=== PATIENT | male | born 1945 | race Caucasian/White ===

== ENCOUNTER → 2018-08-06 | Outpatient (CLI) | payer MEDICARE ==
--- NOTE | 2018-08-06 22:17 | CONS ---
CONSULTATION DATE OF SERVICE: 08/05/2018 73-year-old gentleman has been re-evaluated for obstructive sleep apnea-hypopnea syndrome. HISTORY OF PRESENT ILLNESS/ SLEEP WAKE EVALUATION: Patient has history of obstructive sleep apnea for about 10 years. The last CPAP titration done in 2011. Since that time, patient is on treatment with CPAP with a pressure of 8 cm of water. He continued to use his CPAP equipment every night for the whole night. His usual sleep schedule from 10 p.m. to 7 a.m. Usually no snoring with the machine. No problem with falling asleep. No TV in bedroom. He wakes up from sleep around 2 times with 1 episode of nocturia. No significant sleepiness during the day. [place] Sleepiness Scale is 2. Presently, he has problem with his machine, humidifier does not work and some notes in the machine does not work properly. PAST MEDICAL HISTORY: Positive for coronary artery disease, status post CABG, gout, hypertension, hyperlipidemia. PAST SURGICAL HISTORY: CABG and surgery for rotator cuff problems. MEDICATIONS: Allopurinol, aspirin, atenolol, lisinopril and Pravachol. SOCIAL HISTORY: Negative for smoking. Alcohol consumption occasional. FAMILY HISTORY: Heart problem, acid reflux. REVIEW OF SYSTEMS: Basically negative. No chest pains. No shortness of breath. No swelling of the legs. No sleepiness. PHYSICAL EXAM: gentleman without distress. BP 151/72, HR 58, RR 17, height 5 feet 10 inches, weight 190.6 pounds. Body mass index 27.2, oxygen saturation at room air 97%. Temperature 98.0. Oropharynx extremely low position of soft palate. Mallampati 4. Slight restriction of nasal breathing. Neck is wide 17 inches in circumference. Neck: Supple, no JVD. Thyroid is not palpable. LUNGS Clear to percussion and to auscultation. Good air exchange. No wheezing or rhonchi. HEART S1, S2 regular. No murmurs, gallops, or rubs. ABDOMEN: Soft and nontender. Bowel sounds are present. No organomegaly appreciated. EXTREMITIES: No clubbing or cyanosis. CHEESE SUPERVISOR Awake, alert, and oriented X3. Cranial nerves 2 to 7 intact. There is no fasciculation or atrophy. noted. No focal deficits observed. IMPRESSION: 1. Obstructive sleep apnea-hypopnea syndrome for more than 10 years. The patient continued to use his CPAP equipment every night for the whole night. Low position of soft palate wide neck. No snoring with CPAP. CPAP unit does not work properly at the present time. Old machine. 2. Coronary artery disease, status post coronary artery bypass grafting. 3. Hypertension. 4. Gout. 5. Hyperlipidemia. 6. Status post rotator cuff surgery on the left side. PLAN: 1. Patient will continue to use CPAP equipment every night for the whole night. 2. Prescription to replace CPAP unit and prescription for all necessary CPAP supplies. Sleep hygiene with regular time in bed for at least 8 hours. 3. No driving if feeling sleepiness. Thank you very much for allowing me to participate in management of your patient. Sincerely, John Henning MD, PhD, FAASM Diplomat of [place] Board of Medical Specialties [place] Board of Internal Medicine Digital Media Designer of [facility] [place] MMODL / MITCHN: [id number] /
== END ==
LOC: SLEEP 14:07
PROVIDERS: ATTEND Internal Medicine
DX: G47.33 Obstructive sleep apnea (adult) (pediatric) (principal); I25.10 Atherosclerotic heart disease of native coronary artery without angina pectoris; I10 Essential (primary) hypertension; M10.9 Gout, unspecified; E78.5 Hyperlipidemia, unspecified; Z95.1 Presence of aortocoronary bypass graft; Z98.890 Other specified postprocedural states; Z99.89 Dependence on other enabling machines and devices; Z79.82 Long term (current) use of aspirin; Z79.899 Other long term (current) drug therapy
CPT/HCPCS: 99211

== ENCOUNTER → 2018-11-06 | Outpatient (CLI) | payer MEDICARE ==
--- NOTE | 2018-11-06 15:02 | SFUN ---
SLEEP CENTER FOLLOW UP NOTE DATE OF SERVICE: 11/06/2018 A 73-year-old gentleman who has been followed in the Sleep Center for treatment of obstructive sleep apnea-hypopnea syndrome. Recently patient received new CPAP unit and today is his first visit with the new unit. He likes his CPAP machine. He is able to use it every night for the whole night without significant problems related to mask fitting, pressure and humidification. [place] Sleepiness Scale today is only 2. I checked his CPAP unit. CPAP pressure is 8 cm of water. Usage is 30/30 nights more than 4 hours. Average usage 8.9 hours. Leak is 12 L/minute, which is normal range. Apnea-hypopnea index only 0.6, which is absolutely great level. MEDICATIONS: Allopurinol, aspirin, atenolol, lisinopril, Pravachol. PHYSICAL EXAM: Patient in no distress. BP 132/72, HR 60, RR 16, weight 190 pounds, temperature 98.2, oxygen saturation at room air 97%. OROPHARYNX: Extremely low soft palate, Mallampati 4. HEART: S1, S2 with some irregularities. Possible extrasystoles. ABDOMEN: Slightly obese. Neck Supple, no JVD. Thyroid is not palpable. LUNGS Clear to percussion and to auscultation. Good air exchange. No wheezing or rhonchi. EXTREMITIES No clubbing or cyanosis. TICKET SALES AGENT Awake, alert, and oriented X3. Cranial nerves 2 to 7 intact. There is no fasciculation or atrophy. noted. No focal deficits observed. IMPRESSION: 1. Obstructive sleep apnea-hypopnea syndrome. Patient demonstrated 100% compliance with treatment, benefitting from treatment. 2. Coronary artery disease, status post coronary artery bypass grafting. 3. Hypertension. 4. Gout. 5. Hyperlipidemia. 6. Status post rotator cuff surgery on the left side. PLAN: 1. Patient will continue to use CPAP equipment every night for the whole night with the same level of pressure. 2. I will maintain all necessary CPAP prescription for the mask, tube and filters. 3. Losing weight. 4. Sleep hygiene with regular time in bed for at least 8 hours. 5. Precautions related to driving. No driving if feeling sleepiness. 6. Followup visit in 1 year or earlier if patient has any problems. Thank you very much for allowing me to participate in the management of your patient. Sincerely, John Henning MD, PhD, FAASM Diplomat of [place] Board of Medical Specialties [place] Board of Internal Medicine Draughtsman of [facility] [place] MMFORD / RAVINDER: [id number] /
== END | disposition home or self-care (01) ==
LOC: SLEEP 13:36
PROVIDERS: ATTEND Internal Medicine
DX: G47.33 Obstructive sleep apnea (adult) (pediatric) (principal); I25.10 Atherosclerotic heart disease of native coronary artery without angina pectoris; I10 Essential (primary) hypertension; M10.9 Gout, unspecified; E78.5 Hyperlipidemia, unspecified; Z95.5 Presence of coronary angioplasty implant and graft; Z99.89 Dependence on other enabling machines and devices; Z98.890 Other specified postprocedural states; Z79.82 Long term (current) use of aspirin; Z79.899 Other long term (current) drug therapy

== ENCOUNTER → 2020-12-01 | Outpatient (CLI) | payer MEDICARE ==
--- NOTE | 2020-12-02 06:43 | SFUN ---
SLEEP CENTER FOLLOW UP NOTE DATE OF SERVICE: 12/01/2020 75-year-old gentleman has been evaluated in Sleep Center for obstructive sleep apnea- hypopnea syndrome. Patient continued to use his CPAP equipment every night for the whole night without significant problems. I did not see the patient since 2019. [place] Sleepiness Scale today is 5 which is totally normal. I checked his CPAP unit. CPAP pressure is 8 cm of water. Usage is 30/30 nights for more than 4 hours. Average usage 8.8 hours per night. Leak is 11 L/minute which is in the normal range. Apnea-hypopnea index from 0.2, which is perfect. MEDICATIONS: Allopurinol 300 mg once a day. Farxiga 5 mg once a day, lisinopril 20 mg once a day, Pioglitazone 15 mg once a day. Atenolol 25 mg twice a day. Pravastatin 40 mg once a day. Aspirin 81 mg once a day, COQ10 100 mg twice a day. PHYSICAL EXAMINATION: GENERAL: Patient in no distress. BP 152/82, HR 71, RR 15, height 5 feet 10 inches one quarter, weight 179.2 pounds, body mass index 25.5, temperature 99.8, oxygen saturation at room air 96%. Oropharynx extremely low position of soft palate, Mallampati 4. NECK: Supple, no JVD. Thyroid is not palpable. LUNGS: Clear to percussion and to auscultation. Good air exchange. No wheezing or rhonchi. HEART: S1, S2 regular. No murmurs, gallops, or rubs. ABDOMEN: Soft and nontender. Bowel sounds are present. No organomegaly appreciated. EXTREMITIES: No clubbing or cyanosis. DIALYSIS REGISTERED NURSE: Awake, alert, and oriented X3. Cranial nerves 2 to 7 intact. There is no fasciculation or atrophy. noted. No focal deficits observed. IMPRESSION: 1. Obstructive sleep apnea-hypopnea syndrome. Patient demonstrated 100% compliance with treatment benefitting from treatment. 2. Coronary artery disease, status post coronary artery bypass grafting. 3. Hypertension. 4. Hyperlipidemia. 5. Status post left-sided rotator cuff surgery. PLAN: 1. Patient will continue to use PAP equipment every night for the whole night. 2. Sleep hygiene with regular time in bed for at least 7-1/2 to 8 hours. 3. Precautions related to driving. No driving if feeling sleepiness. 4. I will maintain all necessary prescription for PAP supplies including mask, tube, filters. 5. Watching weight. 6. Follow-up visit in 6 months or earlier if patient has any problems. Thank you very much for allowing me to participate in management of your patient. Sincerely, John Henning MD, PhD, FAASM Diplomat of [place] Board of Medical Specialties [place] Board of Internal Medicine Research And Evaluation Manager of [facility] [place] MMODL / RAVINDER: [id number] /
== END ==
LOC: SLEEP 13:33
PROVIDERS: ATTEND Internal Medicine
DX: G47.33 Obstructive sleep apnea (adult) (pediatric) (principal); I10 Essential (primary) hypertension; E78.5 Hyperlipidemia, unspecified; I25.10 Atherosclerotic heart disease of native coronary artery without angina pectoris; Z95.1 Presence of aortocoronary bypass graft; Z98.890 Other specified postprocedural states; Z79.82 Long term (current) use of aspirin; Z79.899 Other long term (current) drug therapy

== ENCOUNTER → 2021-05-31 | Outpatient (CLI) | payer MEDICARE | LOC: SLEEP 13:14 | PROVIDERS: ATTEND Internal Medicine | DX: G47.33 Obstructive sleep apnea (adult) (pediatric) (principal) | CPT/HCPCS: 99211 ==

== ENCOUNTER → 2022-05-30 | Outpatient (CLI) | payer MEDICARE ==
--- NOTE | 2022-05-30 15:56 | P.PN ---
Subjective DATE: 05/30/2022 FOLLOW UP VISIT. Patient with obstructive sleep apnea hypopnea syndrome return to sleep center for follow-up visit. Information from previous visit have been reviewed. Patient is using PAP equipment every night for the whole night, getting PAP supplies in time. The patient does not have significant problems with the mask, PAP unit and humidification. [place] sleepiness scale is 5, which is normal. I checked information from PAP unit. PAP unit pressure 8 cm H2O. Usage is 100 % for more then 4 hours, average 9 hours per night. Leak is 14.6 l/m, which is in acceptable range. Apnea Hypopnea Index is 0.4, which is normal. MEDICATIONS:1. Allopurinol 300 mg once a day 2. Atenolol 25 mg twice a day 3. Lisinopril 20 mg once a day 4. Pravastatin 40 mg once a day 5. Pioglitazone 30 mg once a day During physical exam: GENERAL: A pleasant patient without any distress. No chest pain, no shortness of breath, no headaches. VITAL SIGNS: BP 175/91, HR 54, RR 18, weight 191.2, temperature 96.4, oxygen saturation at room air 97 % . HEENT: PERRLA, EOMI.low position of soft palate, Mallapati 4. NECK: Supple. No JVD. LUNGS: Clear to percussion and to auscultation. Good air exchange. No wheezing or rhonchi. HEART: S1, S2 regular. ABDOMEN: Soft and nontender.[] EXTREMITIES: No clubbing or cyanosis. VARNISHER PLASTICOATER: Awake, alert, and oriented x3. No focal deficit. Impressions: 1. Obstructive sleep apnea-hypopnea syndrome. Patient demonstrated great compliance with treatment, benefiting from treatment. 2. Hypertension. 3. Coronary artery disease status post CABG. 4. Hyperlipidemia. 5. Status post left-sided rotator cuff surgery. Plan: 1. Continue using PAP equipment every night for the whole night. 2. To change air filter at least 1-2 times per month. 3. PAP unit should stay lower then position of the head. 4. Advised patient to remove all remaining water from humidifier canister daily and make it dry after each usage. Refill canister with fresh distilled water before each usage. 5. Sleep hygiene with regular time in bed for at least 8 hours. 6. Precautions related to driving. No driving if feel any sleepiness. 7. I will maintain prescription for PAP supplies including mask, tube, filters. 8. Follow up visit in 6 months or earlier if patient has any problems. 9. Watching weight. 10. Low sodium diet. 11. Monitoring blood pressure Thank you very much for allowing me to participate in the management of your patient. John Henning MD, PhD, FAASM. Diplomat of [place] Board of Sleep Medicine, Sleep Medicine Board by [place] Board of Internal Medicine Personal Service Workers of [facility] [place]
== END ==
LOC: SLEEP 14:54
PROVIDERS: ATTEND Internal Medicine
DX: G47.33 Obstructive sleep apnea (adult) (pediatric) (principal); I10 Essential (primary) hypertension; Z99.89 Dependence on other enabling machines and devices; E78.5 Hyperlipidemia, unspecified; Z98.890 Other specified postprocedural states; Z95.1 Presence of aortocoronary bypass graft; Z79.899 Other long term (current) drug therapy
CPT/HCPCS: 99212

== ENCOUNTER 2022-06-27 05:54 | Day surgery (SDC) | payer MEDICARE ==
[2022-06-27] MEDS ORDERED: ALPRAZolam 0.5 MG TAB PO PRN (05:57)
[2022-06-27] MEDS ORDERED: SODIUM CHLORIDE 0.9% 1,000 ML in EMPTY BAG 1 BAG IV SCH (05:57)
[2022-06-27] MEDS ORDERED: ALPRAZolam 0.25 MG TAB PO PRN (05:57)
[2022-06-27] MEDS ORDERED: ASPIRIN 325 MG TAB PO STA (05:57)
[2022-06-27] MEDS ORDERED: NITROGLYCERIN SL TABS 0.4 MG TAB SUBLINGUAL PRN (05:57)
[2022-06-27 06:25] VITALS: RESP 18; TEMP 98.5
[2022-06-27 06:31] LABS: Basophils # (A) 0.1 k/uL (0-0.2); Basophils % (A) 1 %; Eosinophils # (A) 0.3 k/uL (0-0.7); Eosinophils % (A) 5 %; HCT 49.1 % (39.0-53.0); HGB 16.4 gm/dL (13.0-17.5); Lymphocytes # (A) 1.3 k/uL (1.0-4.8); Lymphocytes % (A) 22 %; MCH 30.7 pg (25.0-35.0); MCHC 33.5 g/dL (31.0-37.0); MCV 91.7 fL (80.0-100.0); Mean Platelet Volume 8.6; Monocytes # (A) 0.6 k/uL (0-1.0); Monocytes % (A) 10 %; Neutrophils # (A) 3.6 k/uL (1.3-7.7); Neutrophils % (A) 59 %; Platelet Count 143 k/uL (150-450); RBC 5.36 m/uL (4.30-5.90); RDW 13.5 % (11.5-15.5); WBC 6.1 k/uL (3.8-10.6)
[2022-06-27 06:37] LABS: Calcium 9.4 mg/dL (8.4-10.2)
[2022-06-27 06:39] LABS: Potassium 4.3 mmol/L (3.5-5.1)
[2022-06-27] MEDS ORDERED: fentaNYL (PF) 50 MCG/ML 2 ML AMP ONE (07:28)
[2022-06-27] MEDS ORDERED: HEPARIN SODIUM 1,000 UN/ML (10ML VL) ONE (07:28)
[2022-06-27] MEDS ORDERED: LIDOCAINE 1% INJ 10MG/ML (30 ML VIAL-PF) SQ ONE ×2 (07:36→07:37)
[2022-06-27] MEDS ORDERED: MIDAZOLAM 2 MG/2 ML VIAL IV ONE (07:37)
[2022-06-27] MEDS ORDERED: fentaNYL (PF) 50 MCG/ML 2 ML AMP IV ONE (07:37)
[2022-06-27] MEDS ORDERED: IOPAMIDOL-370 125ML BTL INJ ONE (08:08)
[2022-06-27] MEDS ORDERED: IOPAMIDOL-370 100ML BTL INJ ONE (08:08)
--- NOTE | 2022-06-27 08:28 | P.CARDCATH ---
Description of Procedure: PROCEDURES PERFORMED: Left heart catheterization, bilateral coronary angiography, COLLAZO to LAD angiography, left radial to the PDA angiography, aortogram INDICATION: Stress test, history of CAD and CABG with COLLAZO to LAD, left radial to PDA, SVG to diagonal, SVG to OM CONSENT:I have discussed the risks, benefits and alternative therapies for the above-mentioned procedure and for both sedation/analgesia as well as necessary blood product administration, if indicated, as they pertain to this patient. The patient has indicated understanding and acceptance of the risks and procedures discussed. PROCEDURE: After the risks, benefits and alternatives of the above mentioned procedure explained in detail with the patient, informed consent was obtained. Patient was taken to the catheterization lab and prepped and draped in usual fashion. 1% lidocaine was used to anesthetize the right radial artery. A 6- [place] sheath was placed in the right femoral artery using modified Seldinger technique. Left coronary angiography was performed with a 6-[place] JL 4 catheter and right coronary angiography was performed with a 6-[place] JR4 catheter in various views. The FR4 catheter was inserted into the left ventricle and pressure measurements were obtained. Left radial to PDA angiography was performed with a GFR 4. COLLAZO to LAD angiography was performed with the FFR 4. Unable to cannulate any SVG and therefore aortogram was performed in the STANTON projection with power injection which showed no patent grafts to the diagonal or OM branches. Right femoral angiography showed adequate anatomy for closure and therefore a Angio-Seal was placed with hemostasis achieved. The patient tolerated the procedure well. Patient was transported back to the post catheterization holding area in stable condition. Conscious Sedation: Patient was monitored under the direct supervision of vision of myself for conscious sedation using Versed and fentanyl for a total duration of 26 minutes HEMODYNAMICS: Ao: 137/72 LV: 131/5, LVEDP 15 SELECTIVE CORONARY ARTERIOGRAPHY: LEFT MAIN: The left main is a large caliber vessel which bifurcates into the LAD and circumflex. There is a distal left main 70% stenosis. LEFT ANTERIOR DESCENDING CORONARY ARTERY: LAD is a large caliber vessel which wraps around to the apex. There is mild proximal 20-30% LAD stenosis and a mid LAD 70-80% stenosis. There is competitive flow with the COLLAZO to LAD. LEFT CIRCUMFLEX CORONARY ARTERY: Left circumflex is a moderate caliber vessel with mild disease of the circumflex however 80% stenosis of a small caliber OM 1 branch. RIGHT CORONARY ARTERY: The right coronary artery is a large caliber vessel which gives off a PDA and PLV branch and is the dominant vessel. There is 100% proximal RCA stenosis COLLAZO to LAD: Widely patent Left radial to PDA: Widely patent with collaterals to a OM branch SVG to diagonal branch: Occluded SVG to the OM: Occluded Aortogram: No patent SVG grafts noted, no significant aneurysm. FINAL IMPRESSION: 1. [place] CAD as described above including 70% left main, mid LAD 70-80% stenosis, small caliber OM1 80% stenosis, 100% RCA stenosis 2. Patent COLLAZO to LAD, left radial to PDA. Occluded SVG to diagonal and SVG to OM 3. Normal left sided filling pressures PLAN: 1. Aggressive risk factor modification per most recent ACC/AHA guidelines. 2. Continue with medical therapy with OM1 small caliber and would additionally likely need to stent the left main. Appears to have collaterals from the PDA to circumflex territory.
[2022-06-27 11:12] VITALS: BP 155/74; PULSE 56
== END 2022-06-27 12:48 | disposition home or self-care (01) ==
LOC: CATHCVL 05:54
PROVIDERS: ATTEND Internal Medicine
DX: I25.10 Atherosclerotic heart disease of native coronary artery without angina pectoris (principal); Z95.5 Presence of coronary angioplasty implant and graft; I08.0 Rheumatic disorders of both mitral and aortic valves; I25.9 Chronic ischemic heart disease, unspecified; I10 Essential (primary) hypertension; E78.5 Hyperlipidemia, unspecified; E11.9 Type 2 diabetes mellitus without complications; Z79.83 Long term (current) use of bisphosphonates; Z79.84 Long term (current) use of oral hypoglycemic drugs; Z79.82 Long term (current) use of aspirin; Z79.810 Long term (current) use of selective estrogen receptor modulators (SERMs); Z79.899 Other long term (current) drug therapy
CPT/HCPCS: 93459; 93567; 80048; 85025; C1760; C1769 ×3; C1894; J2250; J2001; J3010; Q9967 ×2

== ENCOUNTER → 2022-12-19 | Outpatient (CLI) | payer MEDICARE ==
--- NOTE | 2022-12-19 14:50 | P.PN ---
Subjective DATE: 12/19/2022 FOLLOW UP VISIT. Patient with obstructive sleep apnea hypopnea syndrome return to sleep center for follow-up visit. Information from previous visit have been reviewed. Patient is using PAP equipment every night for the whole night, getting PAP supplies in time. The patient does not have significant problems with the mask, PAP unit and humidification. [place] sleepiness scale is 6, which is normal. I checked information from PAP unit. PAP unit pressure 8 cm H2O. Usage is 100 % for more then 4 hours, average 9 hours per night. Leak is 4.5 l/m, which is in acceptable range. Apnea Hypopnea Index is 0.4 atenolol 25 mg twice a day, which is normal. MEDICATIONS:1. Lisinopril 20 mg once a day 2. Rosuvastatin 40 mg once a day 3. Allopurinol 300 mg once a day 4. Pioglitazone 30 mg once a day During physical exam: GENERAL: A pleasant patient without any distress. VITAL SIGNS: BP 161/71, HR 69, RR 18, weight 184.8, temperature 98.3, oxygen saturation at room air 99 % . HEENT: PERRLA, EOMI.low position of soft palate, Mallapati 4 . NECK: Supple. No JVD. LUNGS: Clear to percussion and to auscultation. Good air exchange. No wheezing or rhonchi. HEART: S1, S2 regular. ABDOMEN: Soft and nontender.[] EXTREMITIES: No clubbing or cyanosis. SANDWICH AND DRINK CART OPERATOR: Awake, alert, and oriented x3. No focal deficit. Impressions: 1. Obstructive sleep apnea-hypopnea syndrome. Patient demonstrated great compliance with treatment, benefiting from treatment. 2. Hypertension. 3. Coronary artery disease, status post CABG. 4. Hyperlipidemia. 5. Status post rotator cuff surgery on the left side. Plan: 1. Continue using PAP equipment every night for the whole night. 2. To change air filter at least 1-2 times per month. 3. PAP unit should stay lower then position of the head. 4. Advised patient to remove all remaining water from humidifier canister daily and make it dry after each usage. Refill canister with fresh distilled water before each usage. 5. Sleep hygiene with regular time in bed for at least 8 hours. 6. Precautions related to driving. No driving if feel any sleepiness. 7. I will maintain prescription for PAP supplies including mask, tube, filters. 8. Follow up visit in 6 months or earlier if patient has any problems. Thank you very much for allowing me to participate in the management of your patient. John Henning MD, PhD, FAASM. Diplomat of [place] Board of Sleep Medicine, Sleep Medicine Board by [place] Board of Internal Medicine Track Laying Machine Operator of [facility] [place]
== END ==
LOC: 3 N SLEEP 13:52
PROVIDERS: ATTEND Internal Medicine
DX: G47.33 Obstructive sleep apnea (adult) (pediatric) (principal); I10 Essential (primary) hypertension; E78.5 Hyperlipidemia, unspecified; I25.810 Atherosclerosis of coronary artery bypass graft(s) without angina pectoris; Z98.890 Other specified postprocedural states; Z99.89 Dependence on other enabling machines and devices; Z79.899 Other long term (current) drug therapy; Z79.01 Long term (current) use of anticoagulants
CPT/HCPCS: 99212

== ENCOUNTER → 2023-06-19 | Outpatient (CLI) | payer MEDICARE ==
--- NOTE | 2023-06-19 13:32 | P.PN ---
Subjective DATE: 06/19/2023 FOLLOW UP VISIT. Patient with obstructive sleep apnea hypopnea syndrome return to sleep center for follow-up visit. Information from previous visit have been reviewed. Patient is using PAP equipment every night for the whole night, getting PAP supplies in time. The patient does not have significant problems with the mask, PAP unit and humidification. [place] sleepiness scale is 6, which is normal. I checked information from PAP unit. PAP unit pressure 9 cm H2O. Usage is 100 % for more then 4 hours, average 9 hours per night. Leak is 5.6 l/m, which is in acceptable range. Apnea Hypopnea Index is 0.5, which is normal. MEDICATIONS:1. Allopurinol 300 mg once a day 2. Atenolol 25 mg twice a day 3. Aspirin 81 mg once a day 4. Lisinopril 20 mg once a day 5. Januvia 25 mg once a day 6. Farxiga 10 mg once a day During physical exam: GENERAL: A pleasant patient without any distress. VITAL SIGNS: BP 146/82, HR 78, RR 16, weight 184, temperature 98.0, oxygen saturation at room air 98 % . HEENT: PERRLA, EOMI.low position of soft palate, Mallapati 4 . NECK: Supple. No JVD. LUNGS: Clear to percussion and to auscultation. Good air exchange. No wheezing or rhonchi. HEART: S1, S2 regular. ABDOMEN: Soft and nontender.[] EXTREMITIES: No clubbing or cyanosis. BRUSH CLEANER: Awake, alert, and oriented x3. No focal deficit. Impressions: 1. Obstructive sleep apnea-hypopnea syndrome. Patient demonstrated great compliance with treatment, benefiting from treatment. 2. Hypertension. 3. Coronary artery disease status post CABG. 4. Diabetes mellitus. 5. Hyperlipidemia. 6. Status post left rotator cuff surgery. Plan: 1. Continue using PAP equipment every night for the whole night. 2. To change air filter at least 1-2 times per month. 3. PAP unit should stay lower then position of the head. 4. Advised patient to remove all remaining water from humidifier canister daily and make it dry after each usage. Refill canister with fresh distilled water before each usage. 5. Sleep hygiene with regular time in bed for at least 8 hours. 6. Precautions related to driving. No driving if feel any sleepiness. 7. I will maintain prescription for PAP supplies including mask, tube, filters. 8. Follow up visit in 6 months or earlier if patient has any problems. 9. Watching weight. Thank you very much for allowing me to participate in the management of your patient. John Henning MD, PhD, FAASM. Diplomat of [place] Board of Sleep Medicine, Sleep Medicine Board by [place] Board of Internal Medicine Sports Umpire of [facility] [place]
== END ==
LOC: 3 N SLEEP 13:03
PROVIDERS: ATTEND Internal Medicine
DX: G47.33 Obstructive sleep apnea (adult) (pediatric) (principal); I10 Essential (primary) hypertension; E11.9 Type 2 diabetes mellitus without complications; E78.5 Hyperlipidemia, unspecified; I25.10 Atherosclerotic heart disease of native coronary artery without angina pectoris; Z79.84 Long term (current) use of oral hypoglycemic drugs; Z79.899 Other long term (current) drug therapy; Z95.1 Presence of aortocoronary bypass graft; Z99.89 Dependence on other enabling machines and devices; Z79.82 Long term (current) use of aspirin; Z98.890 Other specified postprocedural states
CPT/HCPCS: 99212

== ENCOUNTER → 2024-02-12 | Outpatient (CLI) | payer MEDICARE ==
[2024-02-12 11:19] VITALS: BP 135/67; PULSE 60; RESP 16; TEMP 98
--- NOTE | 2024-02-12 11:39 | P.PROGSL ---
Subjective DATE: 02/12/2024 FOLLOW UP VISIT. Patient with obstructive sleep apnea hypopnea syndrome return to sleep center for follow-up visit. Information from previous visit have been reviewed. Patient is using PAP equipment every night for the whole night, getting PAP supplies in time. The patient does not have significant problems with the mask, PAP unit and humidification. [place] sleepiness scale is 5, which is normal. I checked information from PAP unit. PAP unit pressure 8 cm H2O. Usage is 100% for more then 4 hours, average 9.3 hours per night. Leak is 2 l/m, which is in acceptable range. Apnea Hypopnea Index is 0.6, which is perfect. MEDICATIONS have been reviewed, please see below. During physical exam: GENERAL: A pleasant patient without any distress. VITAL SIGNS: Please see below, weight is 192.6 lbs. HEENT: PERRLA, EOMI.low position of soft palate, Mallapati 4 . NECK: Supple. No JVD. LUNGS: Clear to percussion and to auscultation. Good air exchange. No wheezing or rhonchi. HEART: S1, S2 regular. ABDOMEN: Soft and nontender. EXTREMITIES: No clubbing or cyanosis. SAND TECHNICIAN: Awake, alert, and oriented x3. No focal deficit. Impressions: 1. Obstructive sleep apnea-hypopnea syndrome. Patient demonstrated great compliance with treatment, benefiting from treatment. 2. Hypertension. 3. Coronary artery disease, status post CABG. 4. Diabetes mellitus. 5. Hyperlipidemia. 6. Status post left rotator cuff surgery. Plan: 1. Continue using PAP equipment every night for the whole night. 2. Sleep hygiene with regular time in bed for at least 7.5-8 hours 3. PAP unit should stay lower then position of the head. 4. Advised patient to remove all remaining water from humidifier canister daily and make it dry after each usage. Refill canister with fresh distilled water before each usage. 5. Watching weight. 6. Precautions related to driving. No driving if feel any sleepiness. 7. I will maintain prescription for PAP supplies including mask, tube, filters. 8. Follow up visit in 6 months or earlier if patient has any problems. Thank you very much for allowing me to participate in the management of your patient. John Henning MD, PhD, FAASM. Diplomat of [place] Board of Sleep Medicine, Sleep Medicine Board by [place] Board of Internal Medicine Mobile Home Mechanic of [facility] [place] Objective - Vital Signs Vital Signs: Vital Signs Temp 98.0 F 02/12/24 11:18 Pulse 60 02/12/24 11:18 Resp 16 02/12/24 11:18 BP 135/67 02/12/24 11:18 Pulse Ox 97 02/12/24 11:18 FiO2 Intake & Output 02/11/24 02/12/24 02/12/24 18:59 06:59 18:59 Weight 82.724 kg Home Medications: Home Medications Medication Instructions Recorded Confirmed Type Aspirin 162 mg PO DAILY 06/22/22 06/27/22 History Pioglitazone [Actos] 30 mg PO DAILY 06/22/22 02/12/24 History Pravastatin Sodium [Pravachol] 40 mg PO DAILY 06/22/22 06/27/22 History Ubidecarenone [Co Q-10] 100 mg PO BID 06/22/22 02/12/24 History allopurinoL [Zyloprim] 30 mg PO DAILY 06/22/22 02/12/24 History atenoloL [Tenormin] 25 mg PO BID 06/22/22 02/12/24 History lisinopriL [Zestril] 20 mg PO DAILY 06/22/22 02/12/24 History Dapagliflozin Propanediol [Farxiga] 10 mg PO DAILY 02/12/24 02/12/24 History Rosuvastatin [Crestor] 40 mg PO DAILY 02/12/24 02/12/24 History sitaGLIPtin [Januvia] 30 mg PO DAILY 02/12/24 02/12/24 History
== END ==
LOC: 3 N SLEEP 10:44
PROVIDERS: ATTEND Internal Medicine
CPT/HCPCS: 99212

== ENCOUNTER → 2024-09-23 | Outpatient (CLI) | payer MEDICARE ==
[2024-09-23 10:49] VITALS: BP 168/76; PULSE 68; RESP 16; TEMP 97.3
--- NOTE | 2024-09-23 12:26 | P.PROGSL ---
Subjective DATE: 09/23/2024 FOLLOW UP VISIT. Patient with obstructive sleep apnea hypopnea syndrome return to sleep center for follow-up visit. Information from previous visit have been reviewed. Patient is using PAP equipment every night for the whole night, getting PAP supplies in time. The patient does not have significant problems with the mask, PAP unit and humidification. [place] sleepiness scale is 2, which is normal. I checked information from PAP unit. PAP unit pressure 8 cm H2O. Usage is 100% for more then 4 hours, average 9.3 hours per night. Leak is 7 l/m, which is in acceptable range. Apnea Hypopnea Index is 0.1, which is normal. MEDICATIONS have been reviewed, please see below. During physical exam: GENERAL: A pleasant patient without any distress. VITAL SIGNS: Please see below, weight is 184 lbs. HEENT: PERRLA, EOMI.low position of soft palate, Mallapati 4 . NECK: Supple. No JVD. LUNGS: Clear to percussion and to auscultation. Good air exchange. No wheezing or rhonchi. HEART: S1, S2 regular. ABDOMEN: Soft and nontender.[] EXTREMITIES: No clubbing or cyanosis. SENIOR ACCOUNTS PAYABLE CLERK: Awake, alert, and oriented x3. No focal deficit. Impressions: 1. Obstructive sleep apnea-hypopnea syndrome. Patient demonstrated great compliance with treatment, benefiting from treatment. 2. Hypertension. 3. Coronary artery disease, status post CABG. 4. Diabetes mellitus. 5. Hyperlipidemia. 6. Status post left rotator cuff surgery. Plan: 1. Continue using PAP equipment every night for the whole night. 2. Sleep hygiene with regular time in bed for at least 7.5-8 hours 3. PAP unit should stay lower then position of the head. 4. Advised patient to remove all remaining water from humidifier canister daily and make it dry after each usage. Refill canister with fresh distilled water before each usage. 5. Watching weight. 6. Precautions related to driving. No driving if feel any sleepiness. 7. I will maintain prescription for PAP supplies including mask, tube, filters. 8. Follow up visit in 8 months or earlier if patient has any problems. Thank you very much for allowing me to participate in the management of your p atient. John Henning MD, PhD, FAASM. Diplomat of [employer], Sleep Medicine Board by [employer] Wildlife Techn[employer] [facility] Objective - Vital Signs Vital Signs: Vital Signs Temp 97.3 F L 09/23/24 10:48 Pulse 68 09/23/24 10:48 Resp 16 09/23/24 10:48 BP 168/76 09/23/24 10:48 Pulse Ox 98 09/23/24 10:48 FiO2 Intake & Output 09/22/24 09/23/24 09/23/24 18:59 06:59 18:59 Weight 83.461 kg Home Medications: Home Medications Medication Instructions Recorded Confirmed Type Aspirin 162 mg PO DAILY 06/22/22 06/27/22 History Pioglitazone [Actos] 30 mg PO DAILY 06/22/22 09/23/24 History Pravastatin Sodium [Pravachol] 40 mg PO DAILY 06/22/22 06/27/22 History Ubidecarenone [Co Q-10] 100 mg PO BID 06/22/22 02/12/24 History allopurinoL [Zyloprim] 30 mg PO DAILY 06/22/22 09/23/24 History atenoloL [Tenormin] 25 mg PO BID 06/22/22 09/23/24 History lisinopriL [Zestril] 20 mg PO DAILY 06/22/22 09/23/24 History Dapagliflozin Propanediol [Farxiga] 10 mg PO DAILY 02/12/24 09/23/24 History Rosuvastatin [Crestor] 40 mg PO DAILY 02/12/24 09/23/24 History sitaGLIPtin [Januvia] 30 mg PO DAILY 02/12/24 09/23/24 History
== END ==
LOC: 3 N SLEEP 10:34
PROVIDERS: ATTEND Internal Medicine
DX: G47.33 Obstructive sleep apnea (adult) (pediatric) (principal); I10 Essential (primary) hypertension; E11.9 Type 2 diabetes mellitus without complications; E78.5 Hyperlipidemia, unspecified; I25.10 Atherosclerotic heart disease of native coronary artery without angina pectoris; Z95.1 Presence of aortocoronary bypass graft; Z98.890 Other specified postprocedural states
CPT/HCPCS: 99212